=== PATIENT | female | born 1995 | race American Indian/Alaskan Native ===

== ENCOUNTER 2021-11-21 16:02 | Outpatient (CLI) | payer MEDICAID ==
[2021-11-21 16:38] VITALS: BP 110/70
[2021-11-21] MEDS ORDERED: LACTATED RINGERS 1,000 ML IV ONE (17:30)
[2021-11-21 17:38] LABS: Amphetamine Screen,Urine Negative; Benzodiazepines Screen,Urine Negative; Cannabinoid Screen,Urine Negative; Cocaine Screen,Urine Negative; Methadone Screen,Urine Negative; Opiate Screen,Urine Negative
[2021-11-21 17:42] LABS: Bacteria,Urine 4+ /HPF (Negative); Bilirubin,Urine NEG (Negative); Blood,Urine LG (Negative); Color,Urine Yellow (Yellow); Mucus,Urine 3+ /HPF; Urobilinogen,Urine < 2.0 mg/dL (<2.0)
--- NOTE | 2021-11-21 19:55 | Ultrasound Report ---
ULTRASOUND OBSTETRIC LIMITED ULTRASOUND BIOPHYSICAL PROFILE INDICATION / CLINICAL INFORMATION: BPP. COMPARISON: None available. FINDINGS: BREATHING MOVEMENT = 2 GROSS BODY MOVEMENT = 2 TONE = 2 QUALITATIVE AMNIOTIC FLUID VOLUME = 2 TOTAL BIOPHYSICAL SCORE = 8/8 AMNIOTIC FLUID INDEX (cm) = 8.7 PRESENTATION: Cephalic. HEART RATE (beats per minute): 138 ADDITIONAL FINDINGS: None. IMPRESSION: 1. Biophysical Score = 8/8 Signer Name: Thaddeus Stephenson MD Signed: 11/21/2021 7:51 PM Workstation Name: [id number]
[2021-11-21] MEDS ORDERED: cefTRIAXone/NS 1 GM/50 ML 1 GM/50 ML BAG IV ONE (20:30)
[2021-11-21] MEDS ORDERED: LACTATED RINGERS 1,000 ML ONE ×2 (22:18→23:01)
[2021-11-21] MEDS ORDERED: ONDANSETRON 4 MG/2 ML INJ ONE (22:18)
[2021-11-21] MEDS ORDERED: PHENYLEPHRINE 10 MG/1 ML INJ SDV ONE (22:22)
[2021-11-21] MEDS ORDERED: BUPIVACAINE/PF (0.25%) 2.5 MG/ML 30 ML VIAL INFILTRATI ONE ×2 (22:48→22:49)
[2021-11-21] MEDS ORDERED: dexAMETHasone 20 MG/5 ML VIAL ONE (22:49)
== END 2021-11-21 22:10 | disposition home or self-care (01) ==
LOC: TRG 16:02 → APU 16:03 → TRG 22:10
PROVIDERS: ATTEND Obstetrics & Gynecology
DX: O46.93 Antepartum hemorrhage, unspecified, third trimester (principal); Z3A.36 36 weeks gestation of pregnancy
CPT/HCPCS: 59025; 76815; 76819; 80307; 81001; 96361; 96365; 96375; J0696; J1100; J2370; J2405; J3490; J7120; 96360; J7121